=== PATIENT | male | born 1970 | race Caucasian/White ===

== ENCOUNTER 2017-09-02 14:26 | Emergency (ER) | payer OTHER ==
[~2017-09-02] VITALS: Ht 182.9 cm; Wt 95.5 kg
[2017-09-02] MEDS ORDERED: PREDNISONE10 M1 PO (16:22)
[2017-09-02] MEDS ORDERED: BENADRYL50 MG PO (16:22)
[2017-09-02 16:35] VITALS: BP 118/75
== END 2017-09-02 16:36 | disposition home or self-care (01) ==
LOC: EME 14:26
DX: L50.9 Urticaria, unspecified (principal); T41.45XA Adverse effect of unspecified anesthetic, initial encounter; Z98.890 Other specified postprocedural states; E78.5 Hyperlipidemia, unspecified; I10 Essential (primary) hypertension; F32.9 Major depressive disorder, single episode, unspecified; K21.9 Gastro-esophageal reflux disease without esophagitis; F41.9 Anxiety disorder, unspecified; F17.200 Nicotine dependence, unspecified, uncomplicated
CPT/HCPCS: 99281; 99284; J2930; S0028